=== PATIENT | male | born 2000 | race Two or more races ===

== ENCOUNTER 2023-12-27 17:27 | Emergency (ER) | payer MEDICAID, OTHER ==
[~2023-12-27] VITALS: Ht 172.7 cm; Wt 97.7 kg
[2023-12-27] MEDS: IBUPROFEN 600 MG TAB PO ONE (17:55)
[2023-12-27 19:21] VITALS: BP 142/84; PULSE 79; RESP 18; TEMP 98.3; O2SAT 97
== END 2023-12-27 19:25 | disposition home or self-care (01) ==
LOC: ER 17:27
DX: S60.221A Contusion of right hand, initial encounter (principal); Z87.81 Personal history of (healed) traumatic fracture; W22.8XXA Striking against or struck by other objects, initial encounter; Y93.89 Activity, other specified; Y92.89 Other specified places as the place of occurrence of the external cause; Y99.8 Other external cause status
CPT/HCPCS: 73130